=== PATIENT | female | born 1975 | race Caucasian/White ===

== ENCOUNTER 2016-11-08 08:32 | Emergency (ER) | payer OTHER ==
[2016-11-08 08:43] VITALS: BP 114/60
--- NOTE | 2016-11-08 09:01 | ER Document Report ---
HPI - HPI Patient complains to provider of: right ear pain Onset: Other - 3-4 days Onset/Duration: Persistent Quality of pain: Achy Pain Level: 3 Context: Patient presents to the emergency department with complaints of right ear pain. Patient reports recent treatment for otitis media. She finished her antibiotics 7 days ago. She reports pain started 3-4 days ago. She reports drainage this a.m. Denies trauma. Denies fever vomiting diarrhea. Associated Symptoms: None Exacerbated by: Denies Relieved by: Denies Similar symptoms previously: Yes Recently seen / treated by doctor: Yes - REPRODUCTIVE LMP: hyst - DERM Skin Color: Normal Past Medical History - General Information source: Patient Last Menstrual Period: HYSTER - Social History Smoking Status: Never Smoker Chew tobacco use (# tins/day): No Frequency of alcohol use: None Drug Abuse: None Family History: Reviewed & Not Pertinent Patient has suicidal ideation: No Patient has homicidal ideation: No - Medical History Medical History: Negative Renal/ Medical History: Denies: Hx Peritoneal Dialysis Past Surgical History: Reports: Hx Hysterectomy, Hx Thyroid Surgery Vertical Provider Document - CONSTITUTIONAL Agree With Documented VS: Yes Exam Limitations: No Limitations General Appearance: WD/WN, No Apparent Distress - INFECTION CONTROL TRAVEL OUTSIDE OF THE [place] IN LAST 30 DAYS: No - HEENT HEENT: Atraumatic, Normocephalic. negative: Pharyngeal Erythema, Tympanic Membrane Bulging Notes: Right EAC swollen with erythema some drainage noted nontender mastoid - NECK Neck: Normal Inspection, Supple. negative: Lymphadenopathy-Left, Lymphadenopathy-Right - RESPIRATORY Respiratory: Breath Sounds Normal, No Respiratory Distress O2 Sat by Pulse Oximetry: 97 - CARDIOVASCULAR Cardiovascular: Regular Rate - MUSCULOSKELETAL/EXTREMETIES Musculoskeletal/Extremeties: JAROD VEGAS - NEURO Level of Consciousness: Awake, Alert, Appropriate Motor/Sensory: No Motor Deficit - DERM Integumentary: Warm, Dry Course - Re-evaluation Re-evalutation: 11/08/16 09:22 Patient was nontoxic looking. Instructed on his eardrops. Instructed on importance of follow-up for recheck within 1 week. Done - Vital Signs Vital signs: Temp Pulse Resp BP Pulse Ox 98.3 F 79 16 114/60 97 11/08/16 08:42 11/08/16 08:42 11/08/16 08:42 11/08/16 08:42 11/08/16 08:42 Discharge - Discharge Clinical Impression: Right ear pain Right otitis externa Qualifiers: Otitis externa type: unspecified type Chronicity: acute Qualified Code(s): H60.501 - Unspecified acute noninfective otitis externa, right ear Condition: Stable Disposition: HOME, SELF-CARE Instructions: Use of Ear Drops ([facility]), Acetaminophen, Otitis Externa ([facility]), Family Physicians / Practices Additional Instructions: *You have been evaluated for ear pain, otitis externa *Use ear drops as prescribed Instill 4 drops 4 times daily into right ear for 5 days *Tylenol or Motrin as indicated for pain *Follow up with a primary care provider in one week for recheck *Return to ED for worsening condition, changes, needs, increasing pain, concerns
[2016-11-08] MEDS ORDERED: NEOMY SULF/POLYMYX B SULF/HC OTIC SUSP 10 ML AD ONE (09:15)
== END 2016-11-08 09:24 | disposition home or self-care (01) ==
LOC: ER 08:32
DX: H60.501 Unspecified acute noninfective otitis externa, right ear (principal); H92.01 Otalgia, right ear; Z90.710 Acquired absence of both cervix and uterus
CPT/HCPCS: 99282; 87205; 87070; 87077; 87186; J3490

== ENCOUNTER 2017-09-17 20:35 | Emergency (ER) | payer OTHER ==
[2017-09-17] MEDS ORDERED: LORAZEPAM 1 MG TABLET PO ONE (22:02)
[2017-09-17 22:03] LABS: ABSOLUTE BASOPHILS # (AUTO) 0.1 10^3/uL (0.0-0.2); ABSOLUTE EOSINOPHILS # (AUTO) 0.2 10^3/uL (0.0-0.6); ABSOLUTE LYMPHOCYTES (AUTO) 3.9 10^3/uL (0.5-4.7); ABSOLUTE MONOCYTES (AUTO) 0.8 10^3/uL (0.1-1.4); ABSOLUTE NEUT (AUTO) 7.9 10^3/uL (1.7-8.2); BASOPHILS % (AUTO) 0.7 % (0-2); EOSINOPHILS % (AUTO) 1.8 % (0-6); HEMATOCRIT 42.4 % (36.0-47.0); HEMOGLOBIN 14.5 g/dL (12.0-15.5); LYMPHOCYTES % (AUTO) 30.3 % (13-45); MEAN CORPUSCULAR HEMOGLOBIN 30.3 pg (27.0-33.4); MEAN CORPUSCULAR HGB CONC 34.1 g/dL (32.0-36.0); MEAN CORPUSCULAR VOLUME 89 fl (80-97); MONOCYTES % (AUTO) 6.2 % (3-13); PLATELET COUNT 241 10^3/uL (150-450); RED BLOOD COUNT 4.78 10^6/uL (3.72-5.28); RED CELL DISTRIBUTION WIDTH 13.1 % (11.5-14.0); TOTAL CELLS COUNTED % (AUTO) 100 %; WHITE BLOOD COUNT 12.9 10^3/uL (4.0-10.5)
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
[2017-09-17 22:19] LABS: ALANINE AMINOTRANSFERASE 33 U/L (9-52); ALKALINE PHOSPHATASE 74 U/L (38-126); ANION GAP 8 (5-19); ASPARTATE AMINO TRANSFERASE 14 U/L (14-36); BILIRUBIN,DIRECT 0.1 mg/dL (0.0-0.4); BILIRUBIN,TOTAL 0.1 mg/dL (0.2-1.3); BLOOD UREA NITROGEN 10 mg/dL (7-20); CALCIUM 9.8 mg/dL (8.4-10.2); CARBON DIOXIDE 29 mmol/L (22-30); CHLORIDE 107 mmol/L (98-107); GLUCOSE 83 mg/dL (75-110); POTASSIUM 4.1 mmol/L (3.6-5.0); SODIUM 143.5 mmol/L (137-145); TOTAL PROTEIN 6.3 g/dL (6.3-8.2)
--- NOTE | 2017-09-17 22:19 | EKG REPORT ---
SEVERITY:- OTHERWISE NORMAL ECG - SINUS ARRHYTHMIA, RATE [id number] : Confirmed by: Jeanette Sandoval 17-Sep-2017 22:18:20
[2017-09-17 22:20] LABS: APPEARANCE,URINE SLIGHTLY-CLOUDY; BILIRUBIN,URINE NEGATIVE (NEGATIVE); COLOR,URINE YELLOW; GLUCOSE, URINE NEGATIVE (NEGATIVE); KETONES,URINE TRACE mg/dL (NEGATIVE); LEUKOCYTE ESTERASE,URINE NEGATIVE (NEGATIVE); NITRITE,URINE NEGATIVE (NEGATIVE); PROTEIN,URINE NEGATIVE (NEGATIVE); URINE SPECIFIC GRAVITY 1.026
[2017-09-17 22:22] LABS: ACETAMINOPHEN < 10 ug/mL (10-30); ALCOHOL < 10 mg/dL (NONE DETECTED); SALICYLATE < 1.0 mg/dL (2.0-20.0)
[2017-09-17 22:31] LABS: URINE AMPHETAMINES SCREEN NEGATIVE; URINE BARBITURATES SCREEN NEGATIVE; URINE BENZODIAZEPINES SCREEN NEGATIVE; URINE COCAINE SCREEN NEGATIVE; URINE MARIJUANA (THC) SCREEN NEGATIVE; URINE METHADONE SCREEN NEGATIVE; URINE PHENCYCLIDINE SCREEN NEGATIVE
[2017-09-18] MEDS ORDERED: OLANZAPINE 5 MG TABLET PO ONE (09:13)
[2017-09-18] MEDS: OLANZAPINE 2.5 MG TABLET PO SCH ×2 (09:31→17:44)
[2017-09-18] MEDS: BENZTROPINE MESYLATE 1 MG TABLET PO SCH (09:31)
[2017-09-18] MEDS: DIVALPROEX SODIUM 500 MG TAB.SR.24H PO SCH ×2 (09:31→17:44)
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
--- NOTE | 2017-09-18 12:44 | ER Document Report ---
Doctor's Note Notes: 09/18/17 12:43 Rounds: Chart reviewed and patient interviewed. Vital signs were all normal. Labs were essentially normal. Borderline slight elevation of white cell count without an obvious cause. Patient appears to be medically stable for transfer or discharge. Juanita Lemos MD 09/18/17 14:53 Patient became more unruly. Mental health asked for Haldol 10 mg IM every 6 hours as needed. I ordered 5 mg IM once. Juanita Lemos MD
[2017-09-18] MEDS ORDERED: HALOPERIDOL LACTATE INJ 5 MG/1 ML VIAL IM ONE (14:53)
[2017-09-19 07:36] VITALS: BP 101/59
[2017-09-19] MEDS: BENZTROPINE MESYLATE 1 MG TABLET PO SCH (09:52)
[2017-09-19] MEDS: OLANZAPINE 2.5 MG TABLET PO SCH (09:52)
[2017-09-19] MEDS: DIVALPROEX SODIUM 500 MG TAB.SR.24H PO SCH (09:52)
--- NOTE | 2017-09-19 12:11 | PSYCHOLOGICAL NOTE ---
Psych Note - Psych Note Psych Note: Reason for Consult: Anxiety, Suicidal Ideation Consent Permissions: None given Patient is a 41-year-old female who presented to the Emergency Department with numbness/tingling in her hands and anxiety. Patient was re-evaluated by this provider. Patient was able to talk to this provider without becoming overtly tearful. She stated she wants her children in her life. She also indicated she wants to find a caodaism family for her "spiritual growth." Patient stated she wants to be linked with a community provider so she can "get past" her trauma history. She stated she needs to learn how to "maintain a roof over her head and food." Patient reiterated she is a good person and wants tools and resources to make good choices. Patient stated she was still able to access her apartment and had the jansen to do so when she returned. Patient stated she had until September 25, 2017 to leave the apartment due to the eviction process. Patient was alert and oriented to person, place, time and circumstance. Mood was subdued with congruent affect. Patient was able to converse without crying. She did not appear to be responding to internal stimuli as evidenced by maintaining eye contact and answering questions when asked, although she continued to have slow processing when answering. Thought processes were somewhat disorganized and tangential but more lucid than previous evaluation. Patient was able to be fairly easy to re-direct which is a noticeable improvement from previous evaluation. Conversational speech was normal for rate and prosody and normal to low for tone. Intellectual abilities were estimated to be in the low average range. Insight, judgment and impulse control were fair as evidenced by patient recognizing the need for continued community involvement. 1. 296.40 (F31.9) Bipolar I Disorder, unspecified 2. 309.81 (F43.10) Post Traumatic Stress Disorder, by patient report Plan/Impression: Recommendation to rescind IVC. Patient does not meet [place] G.[place] IVC criteria. Patient denies suicidal/homicidal ideation. intent and plan. Patient stated she is tolerating the medication regimen. Patient was observed communicating without becoming tearful. Provided resources to patient for [facility] and outpatient providers to manage ongoing treatment of mental health and medication. Patient was provided with resources for local homeless shelters to utilize as needed. Patient was referred to [facility] to link with that provider directly from ED discharge. Dr. Graves was consulted in the care and management of this patient. ED physician in agreement with recommendation and disposition.
--- NOTE | 2017-09-19 12:36 | ER Document Report ---
Doctor's Note Notes: 09/19/17 12:35 Not suicidal, not homicidal, states that she always gets depressed this time of year, agreeable to being discharged home, I have us will be meeting her in the parking lot, they will discuss further resources, patient has not yet been evicted, is being given 14 day prescriptions for Zyprexa, Depakote and Cogentin. Will also be given homeless resources in case her eviction goes through. He is
== END 2017-09-19 12:51 | disposition home or self-care (01) ==
LOC: ER 20:35
DX: F33.1 Major depressive disorder, recurrent, moderate (principal); F41.9 Anxiety disorder, unspecified; R45.851 Suicidal ideations; D72.829 Elevated white blood cell count, unspecified; R20.0 Anesthesia of skin; R20.2 Paresthesia of skin; F17.200 Nicotine dependence, unspecified, uncomplicated
CPT/HCPCS: 93005; 99285; 36415; 80307 ×4; 85025; 80053; 81001; 93010; J3490 ×2

== ENCOUNTER 2017-12-07 23:11 | Emergency (ER) | payer OTHER ==
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
--- NOTE | 2017-12-08 01:30 | ER Document Report ---
ED Psych Disorder / Suicide - General Mode of Arrival: Ambulatory Information source: Patient TRAVEL OUTSIDE OF THE [place] IN LAST 30 DAYS: No - HPI Quality of pain: No pain Suicide Risk Factors: Lack of social support, No spouse Situational problems related to: Other - Pending discharge from the homeless [facility] Associated symptoms: Depressed Similar symptoms previously: Yes Recently seen / treated by doctor: No <ROGERS RIVERA - Last Filed: 12/08/17 07:48> <DONALD SOTO - Last Filed: 12/08/17 09:26> - General Chief Complaint: Psych Problem Stated Complaint: NOT FEELING WELL Time Seen by Provider: 12/08/17 00:48 Notes: Patient presents complaining of not feeling well and wanting to get a prescription for Chantix to stop smoking. Patient states she has a history of anxiety, depression and PTSD and had been on medications up until about 6 months ago when she took herself off of them. Patient states that around that time she ended up quitting her jobs because she could not handle the workload and then ended up losing her apartment. Patient states she has been staying at the homeless [facility] since September but was told yesterday that she has 3 weeks until she will be kicked out of the [facility]dc. Patient states that she attempts to contact her adult children who live with her father but they do not return her phone calls. Patient states she is worried about her children. Patient denies any suicidal or homicidal ideation. (ROGERS RIVERA) - Related Data Allergies/Adverse Reactions: phenoperidine Allergy (Verified 11/08/16 08:51) Past Medical History - General Information source: Patient - Social History Smoking Status: Current Every Day Smoker Frequency of alcohol use: Occasional Drug Abuse: None Occupation: None Lives with: Homeless Family History: Reviewed & Not Pertinent Patient has suicidal ideation: No Patient has homicidal ideation: No Renal/ Medical History: Denies: Hx Peritoneal Dialysis Psychiatric Medical History: Reports: Hx Anxiety, Hx Depression, Hx Post Traumatic Stress Disorder Past Surgical History: Reports: Hx Hysterectomy, Hx Thyroid Surgery - Immunizations Hx Diphtheria, Pertussis, Tetanus Vaccination: Yes <ROGERS RIVERA - Last Filed: 12/08/17 07:48> Review of Systems - Review of Systems Constitutional: No symptoms reported EENT: No symptoms reported Cardiovascular: No symptoms reported. denies: Chest pain Respiratory: No symptoms reported. denies: Cough, Short of breath Gastrointestinal: No symptoms reported. denies: Abdominal pain, Nausea, Vomiting Genitourinary: No symptoms reported Female Genitourinary: No symptoms reported Musculoskeletal: No symptoms reported. denies: Back pain Skin: No symptoms reported Hematologic/Lymphatic: No symptoms reported Neurological/Psychological: Depression. denies: Homicidal ideation, Headaches, Suicidal ideation <ROGERS RIVERA - Last Filed: 12/08/17 07:48> Physical Exam - General General appearance: Appears well, Alert In distress: None - HEENT Head: Normocephalic Eyes: Normal Conjunctiva: Normal Nasal: Normal Mouth/Lips: Normal Mucous membranes: Normal Neck: Normal, Supple. No: Lymphadenopathy - Respiratory Respiratory status: No respiratory distress Chest status: Nontender Breath sounds: Normal. No: Rales, Rhonchi, Stridor, Wheezing Chest palpation: Normal - Cardiovascular Rhythm: Regular Heart sounds: S1 appreciated, S2 appreciated Murmur: No - Abdominal Inspection: Normal Distension: No distension Bowel sounds: Normal Tenderness: Nontender Organomegaly: No organomegaly - Back Back: Normal, Nontender. No: CVA tenderness - Extremities General upper extremity: Normal inspection, Normal strength General lower extremity: Normal inspection, Normal strength - Neurological Neuro grossly intact: Yes Cognition: Normal Orientation: AAOx4 [place] Coma Scale Eye Opening: Spontaneous [place] Coma Scale Verbal: Oriented [place] Coma Scale Motor: Obeys Commands [place] Coma Scale Total: 15 - Psychological Associated symptoms: Depressed, Tearful - Skin Skin Temperature: Warm Skin Moisture: Dry Skin Color: Normal <ROGERS RIVERA - Last Filed: 12/08/17 07:48> - Vital signs Vitals: Temp Pulse Resp BP Pulse Ox 98.4 F 96 18 123/78 98 12/07/17 23:16 12/07/17 23:16 12/07/17 23:16 12/07/17 23:16 12/07/17 23:16 Course - Laboratory Result Diagrams: 12/08/17 02:30 12/08/17 02:30 <ROGERS RIVERA - Last Filed: 12/08/17 07:48> - Laboratory Result Diagrams: 12/08/17 02:30 12/08/17 02:30 <DONALD SOTO - Last Filed: 12/08/17 09:26> - Re-evaluation Re-evalutation: 12/08/17 01:29 Patient has poorly managed chronic depression. Patient is not suicidal nor homicidal at this time. Patient is agreeable to waiting to be evaluated by mental health team in the morning. 12/08/17 03:55 pt sleeping, will await mental health consult in the am. 12/08/17 07:48 Report and handoff given to Donald Soto LEAN CONSULTANT (ROGERS RIVERA) 12/08/17 09:16 Patient is seen the psych counselor who has evaluated her and the patient's diagnosis is history of anxiety, family discord, homelessness. She will be given resources and will be discharged. I spoke with her and she plans to go to the [facility] and has applied for a job, and disability. 12/08/17 09:24 (DONALD SOTO) - Vital Signs Vital signs: Temp Pulse Resp BP Pulse Ox 98.2 F 85 18 120/76 100 12/08/17 05:30 12/08/17 05:30 12/08/17 05:30 12/08/17 05:30 12/08/17 05:30 - Laboratory Laboratory results interpreted by me: 12/08/17 12/08/17 02:30 02:30 WBC 14.4 H Absolute Neutrophils 10.0 H Chloride 108 H Glucose 141 H Total Bilirubin < 0.1 L AST 12 L Total Protein 6.0 L Salicylates < 1.0 L Acetaminophen < 10 L Discharge <ROGERS RIVERA - Last Filed: 12/08/17 07:48> <DONALD SOTO - Last Filed: 12/08/17 09:26> - Discharge Clinical Impression: Hx of anxiety disorder, Family discord, Homelessness Condition: Good Disposition: HOME, SELF-CARE Additional Instructions: to er any concerns resources given to you for local resources/fdc
[2017-12-08 02:45] LABS: ABSOLUTE BASOPHILS # (AUTO) 0.1 10^3/uL (0.0-0.2); ABSOLUTE EOSINOPHILS # (AUTO) 0.2 10^3/uL (0.0-0.6); ABSOLUTE LYMPHOCYTES (AUTO) 3.4 10^3/uL (0.5-4.7); ABSOLUTE MONOCYTES (AUTO) 0.8 10^3/uL (0.1-1.4); BASOPHILS % (AUTO) 0.4 % (0-2); EOSINOPHILS % (AUTO) 1.2 % (0-6); HEMATOCRIT 43.5 % (36.0-47.0); HEMOGLOBIN 14.5 g/dL (12.0-15.5); LYMPHOCYTES % (AUTO) 23.6 % (13-45); MEAN CORPUSCULAR HEMOGLOBIN 30.3 pg (27.0-33.4); MEAN CORPUSCULAR HGB CONC 33.3 g/dL (32.0-36.0); MEAN CORPUSCULAR VOLUME 91 fl (80-97); MONOCYTES % (AUTO) 5.3 % (3-13); PLATELET COUNT 233 10^3/uL (150-450); RED BLOOD COUNT 4.79 10^6/uL (3.72-5.28); RED CELL DISTRIBUTION WIDTH 13.3 % (11.5-14.0); SEGMENTED NEUTROPHILS % (AUTO) 69.5 % (42-78); TOTAL CELLS COUNTED % (AUTO) 100 %; WHITE BLOOD COUNT 14.4 10^3/uL (4.0-10.5)
[2017-12-08 03:03] LABS: ALANINE AMINOTRANSFERASE 27 U/L (9-52); ALBUMIN 3.6 g/dL (3.5-5.0); ALKALINE PHOSPHATASE 64 U/L (38-126); ANION GAP 9 (5-19); ASPARTATE AMINO TRANSFERASE 12 U/L (14-36); BLOOD UREA NITROGEN 12 mg/dL (7-20); CALCIUM 9.3 mg/dL (8.4-10.2); CARBON DIOXIDE 24 mmol/L (22-30); CHLORIDE 108 mmol/L (98-107); GLUCOSE 141 mg/dL (75-110); POTASSIUM 3.9 mmol/L (3.6-5.0)
[2017-12-08 03:08] LABS: ACETAMINOPHEN < 10 ug/mL (10-30); ALCOHOL < 10 mg/dL (NONE DETECTED); BILIRUBIN,TOTAL < 0.1 mg/dL (0.2-1.3); SALICYLATE < 1.0 mg/dL (2.0-20.0)
[2017-12-08 08:57] LABS: APPEARANCE,URINE CLEAR; BILIRUBIN,URINE NEGATIVE (NEGATIVE); COLOR,URINE YELLOW; GLUCOSE, URINE NEGATIVE (NEGATIVE); KETONES,URINE NEGATIVE (NEGATIVE); LEUKOCYTE ESTERASE,URINE NEGATIVE (NEGATIVE); NITRITE,URINE NEGATIVE (NEGATIVE); PROTEIN,URINE NEGATIVE (NEGATIVE); URINE SPECIFIC GRAVITY 1.018; UROBILINOGEN,URINE NEGATIVE mg/dL (<2.0)
[2017-12-08 09:14] LABS: URINE AMPHETAMINES SCREEN NEGATIVE; URINE BARBITURATES SCREEN NEGATIVE; URINE BENZODIAZEPINES SCREEN NEGATIVE; URINE COCAINE SCREEN NEGATIVE; URINE MARIJUANA (THC) SCREEN NEGATIVE; URINE METHADONE SCREEN NEGATIVE; URINE PHENCYCLIDINE SCREEN NEGATIVE
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
[2017-12-08 09:40] VITALS: BP 125/73
--- NOTE | 2017-12-08 10:01 | EKG REPORT ---
SEVERITY:- NORMAL ECG - SINUS RHYTHM : Confirmed by: Prateek Gloria MD 08-Dec-2017 10:01:14
== END 2017-12-08 09:40 | disposition home or self-care (01) ==
LOC: ER 23:11
DX: F41.9 Anxiety disorder, unspecified (principal); F32.9 Major depressive disorder, single episode, unspecified; Z59.0 Homelessness; F17.200 Nicotine dependence, unspecified, uncomplicated
CPT/HCPCS: 36415; 80053; 80307; 81001; 84443; 85025; 93005; 93010; 99285